=== PATIENT | male | born 1960 | race Caucasian/White ===

== ENCOUNTER 2021-07-02 07:49 | Outpatient (CLI) | payer OTHER, SELFPAY ==
--- NOTE | 2021-07-02 07:51 | CT_ITS ---
STUDY: CT ABDOMEN AND PELVIS WITH CONTRAST REASON FOR EXAM: Male, 60 years old. Abdominal pain. History of prior umbilical hernia repair. RADIATION DOSAGE (If Supplied By Facility): CTDIvol = ( 15.175 ) mGy, DLP = ( 1041.23 ) mGycm TECHNIQUE: Transaxial images were obtained from the dome of the diaphragm to the symphysis pubis with oral contrast. Oral and amp;amp; IV Readi-CAT and amp;amp; 100mL Isovue-300 was administered. Sagittal and coronal images were reconstructed. Individualized dose optimization techniques were used for this CT. COMPARISON: None. FINDINGS: The visualized lung bases are unremarkable. The visualized portions of the heart are within normal limits. Normal liver. Normal gallbladder and extrahepatic biliary system. Normal spleen. Normal pancreas. Normal bilateral adrenal glands. Normal right kidney. Left parapelvic renal cysts. Normal visualized stomach. Normal small intestine. There are multiple colonic diverticula consistent with diverticulosis. The appendix is visualized and appears normal. There is diffuse atherosclerotic calcification of the abdominal aorta and its major visceral branches, without a demonstrated aneurysm. Normal inferior vena cava. There is borderline retroperitoneal lymphadenopathy with enlarged nodes no greater than 10mm in the short axis diameter. Normal urinary bladder. There is enlargement of the prostate gland. It measures 4.8 cm x 5.5 cm. Normal abdominal wall. There are mild degenerative changes of the visualized lumbar spine. CT/Abdomen/Pelvis WITH Contrast IMPRESSION: Scattered sigmoid diverticula. Prostatic enlargement. Left parapelvic renal cysts. Electronically Signed: Sergey Mary MD at 9:08 EST , Service support ,
== END 2021-07-02 23:59 | disposition short-term general hospital (02) ==
PROVIDERS: PCP Family Medicine; Referring Provider Surgery; Visit Provider Surgery
DX: R10.9 Unspecified abdominal pain (principal)
CPT/HCPCS: 74177; Q9967

== ENCOUNTER 2021-08-05 05:59 | Day surgery (SDC) | payer OTHER, SELFPAY ==
--- NOTE | 2021-08-04 13:13 | EKG12_ITS ---
Test Reason : PREOP Blood Pressure : / mmHG Vent. Rate : 051 BPM Atrial Rate : 051 BPM P-R Int : 178 ms QRS Dur : 098 ms QT Int : 426 ms P-R-T Axes : 028 039 047 degrees QTc Int : 392 ms Sinus bradycardia Otherwise normal ECG Confirmed by FAUSTO PEREA, MERRY ([id number]), news copy editor IGNACIO EMERSON ([id number]) on 08/05/2021 8:26:20 AM Referred By: Mateusz Quiroga Confirmed By:MERRY LAMBERT MD
[2021-08-04 14:53] LABS: Hematocrit 45.9 % (40-54); Hemoglobin 15.3 g/dL (13.0-16.5); Mean Corp Hgb Conc 33.3 g/dL (32-36); Mean Corpuscular Hgb 30.9 pg (27.0-32.0); Mean Corpuscular Volume 92.7 fL (80-94); Mean Platelet Vol. 11.3 fl (6.2-12.0); Platelet Count 229 K/mm3 (150-450); RBC Distribution Width CV 13.1 % (11.6-14.6); RBC Distribution Width SD 44.4 fl (35.1-43.9); Red Blood Count 4.95 M/mm3 (4.6-6.2); White Blood Count 5.1 K/mm3 (4.4-11.0)
[2021-08-04 15:41] LABS: Anion Gap 3 (5-15); BUN 11 mg/dL (7-18); BUN/Creat Ratio 12.7 RATIO (10-20); Calcium,Total 8.9 mg/dL (8.5-10.1); Chloride 104 mmol/L (98-107); Creatinine, Serum 0.87 mg/dL (0.70-1.30); EST Glomerular Filtration Rate 96 mL/min (>60); Est Glom Filt Rate - Afr Amer 116 mL/min (>60); Glucose 84 mg/dL (74-106); Potassium 3.7 mmol/L (3.5-5.1); Sodium Level 138 mmol/L (136-145)
[2021-08-05] VITALS (8 sets, daily range): BP systolic 120–133; BP diastolic 69–84; PULSE 52–78; RESP 14–18; TEMP 36.7–37.3; O2SAT 94–100; BMI 24.5
--- NOTE | 2021-08-05 06:36 | HP.PCM_ITS ---
History and Physical Date of Admission: 08/05/21 Intake Intake Visit Reasons: INGUINAL HERNIA/ REFERRED BY DR. 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 Is patient in pain?: No Allergies No Known Allergies Allergy (Verified 07/23/21 09:16) Medications esomeprazole magnesium 20 mg capsule,delayed release 20 mg PO DAILY 03/22/21 [History Confirmed 07/23/21] multivitamin 1 tab PO DAILY 07/23/21 [History Confirmed 07/23/21] PFSH Medical History GERD (gastroesophageal reflux disease) IBS (irritable bowel syndrome) Surgical History History of colonoscopy History of esophagogastroduodenoscopy (EGD) Family History Father Hypertension Cancer skin Mother Cancer ovarian Social History Smoking Status: Never smoker alcohol intake: current details: social substance use type: does not use HPI HPI HPI: MERRY CUI, is a 60 M who presents to the office today for bilateral inguinal hernia. The patient was seen recently and was found to have bilateral inguinal hernia on CT scan. He reports the right causing more discomfort than the left. Patient reports that he has been there for about a year. ROS General General: Yes fatigue; No weight change, appetite, colon cancer, breast cancer or weakness HEENT HEENT: No difficulty swallowing, eye injury, eye surgery, swollen glands or hoarseness Endo Endocrine: No thyroid disease, diabetes mellitus, thyroid cancer, Hair loss, heat intolerance or cold intolerance Skin Skin: No rash or changing moles Musc Musculoskeletal: No back problems, arthritis, rheumatoid arthritis, gout or joint pain Cardio Cardiovascular: No murmur, pacemaker, heart disease, atrial fibrillation, high blood pressure, heart attack, heart stent, palpitations, shortness of breat with exertion or chest pain Psych Psychiatric: No depression, anxiety or hearing voices Resp Respiratory: No shortness of breath, No sleep apnea, No cough, No COPD, No asthma, No emphysema and No wheezing Gastro Gastrointestinal: No abdominal pain, No nausea or vomiting, No diarrhea, No constipation, No blood in stool, Yes acid reflux, No hemorrhoids, No ulcers, No gallbladder problem and No black,tarry stools John Hematologic: No blood thinners, No blood disorders, No bleeding, No anemia and No blood clots Neuro Neurologic: No system reviewed and no additional complaints, except as documented, No as per HPI, No abnormal gait, No abnormal hearing, No abnormal movements, No abnormal speech, No behavioral changes, No burning sensations, No confusion, No convulsions, No disequilibrium, No dizziness, No localized weakness, No frequent falls, No headache(s), No lack of coordination, No loss of vision, No memory loss, No numbness, No other visual disturbances, No radicular pain, No restless legs, No sensory deficit, No syncope, No tingling, No tremor(s), No weakness and No other Exam Const General: cooperative Orientation: alert and oriented x3 HENMT Head: normal to inspection Neck Neck: normal visual inspection and full ROM Chest Chest palpation & inspection: normal inspection of the chest Resp Effort & Inspection: normal respiratory effort Auscultation: clear to auscultation bilaterally Cardio Rate: regular rate Rhythm: regular rhythm GI Inspection: non-distended Palpation: soft, hernia direct inguinal on the right and nontender Skin General: no rashes or lesions noted Neuro General: patient alert and patient oriented x3 Extrem General: full ROM Psych Appearance: grossly normal Mental Status: mental status grossly normal Assessment and Plan Assessment and Plan (1) Bilateral inguinal hernia without obstruction or gangrene: Status: Acute Qualifiers: Recurrence: non-recurrent Qualified Code(s): K40.20 - Bilateral inguinal hernia, without obstruction or gangrene, not specified as recurrent Plan - Dr. Mateusz Quiroga MD: The patient has bilateral inguinal hernia on CT scan. Right is larger than the left. I discussed robotic assisted laparoscopic bilateral inguinal hernia repair with mesh with the patient. I discussed the risks of the procedure including but not limited to bleeding, infection, injury to underlying bowel, chronic groin pain, recurrence of hernia. Patient stands all the risks and is when to proceed. Mateusz Quiroga MD Pager: [facility] [address] [place] [address], [address] [place] [address] Office: I have seen and reexamined the patient and there are no changes.
[2021-08-05] MEDS: Lactated Ringers 1,000 ML 15 ML IV ×2 (06:52→08:25)
[2021-08-05] MEDS: Cefazolin 2 GM in 0.9% Normal Saline 100 ML IV (07:30)
[2021-08-05] MEDS: Bupivacaine Mpf 0.5% 30 ML VIAL (08:20)
--- NOTE | 2021-08-05 08:25 | OP.PCM_ITS ---
Problems Associated Problem List Diagnoses (1) Right inguinal hernia: Report of Operation Date of Procedure: 08/05/21 Pre-Operative Diagnosis: Right inguinal hernia Post-Operative Diagnosis: Right inguinal hernia Surgery/Procedure Performed:: Robotic assisted laparoscopic right inguinal hernia repair with mesh Description of Procedure: Patient was brought back to the operating room and general anesthesia was induced. The abdomen was prepped and draped in the usual sterile fashion. A midline incision was made superior to the umbilicus and the fascia was elevated and Veress needle was placed into the abdomen and a drop test was performed and was normal. The Veress needle was then used to insufflate the abdomen to 15 mmHg and then the Veress needle was removed and a port was placed into the abdomen. Camera was placed into the abdomen and it was inspected and there were no signs of injury. The patient was placed in Trendelenburg position and both inguinal regions were inspected. Patient had direct right inguinal hernia and no hernia on the left side. CT scan did warehouse order picker a small hernia on the left which must have been a lipoma of the cord as there was no defect or dimpling in the left groin. Decision was made to repair the right inguinal hernia. Next under direct visualization a right lateral 8 mm port was placed as well as a left lateral 8 mm port. The robot was then docked. Using electrocautery scissors an incision was made in the right inguinal region and dissection was carried inferiorly until the hernia sac was reduced. Dissection continued inferiorly until there was a large area for the mesh. Next a ProGrip mesh was unfolded over the hernia defect. The peritoneum was then reapproximated using a running 3 OV lock suture completely covering the mesh. The robot was then undocked and the air was allowed to desufflate from the abdomen. The ports were removed and the incisions were injected with anesthetic and closed with interrupted 4-0 Monocryl suture and Steri-Strips and bandages. Scrotum was checked at the end the case and contain both testicles. Patient was awoken and taken to PACU in stable condition. Patient tolerated the procedure well. Grafts/Implants Used: ProGrip mesh in the right inguinal region Admit VTE Documentation VTE Mechan Device Prophylaxis: SCD's
--- NOTE | 2021-08-05 08:28 | EX.PCM.DISCH ---
Discharge Instructions Procedure Hernia Diet Discharge Diet: Light diet - advance as tolerated Activity Discharge Activity: May Not Drive (for 2-3 days or while taking narcotic pain meds.) and May Shower (with the bandage in place 1-2 days after surgery.) Lifting Restrictions: 20 pounds for 4 weeks. Additional Activity Instructions:: Climbing stairs is fine, walking is encouraged. Sitting in bed may be uncomfortable. Sitting up using your lateral muscles (sitting up sideways) is usually more comfortable. Do not drive, work heavy equipment of sign legal documents for 24 hours. If your hernia repair was an ingunial repair, you may have scrotal swelling, an ice pack and/or athletic support can provide more comfort. Pain medications may cause nausea, you should typically eat light foods as you take your pain medications. Pain medications may also cause constipation. If you have difficulty with this, discuss with your doctor. Dressing / Incision Call your doctor if your incision/area has: Continuous Slow Oozing, Sudden Increased Bleeding, Increased Pain/ Swelling, Increased Redness and Foul Smelling Discharge Call your doctor if you observe: Fever of 101 or Higher Suture Line Care: Avoid Pulling/Pushing and Avoid Pinching/Bending Remove Dressing in: 2 days (Remove clear bandages in 2 days, remove Steri-Strips in 7 to 10 days.) Cleanse incision/area with: Soap & Water Follow Up Care Please Follow Up With: Mateusz Quiroga MD When: Please call to schedule 2 week follow up appointment. [phone] Test Results: Test results from this visit will be discussed in further detail at your follow-up appointment, if applicable. Discharge Plan Admission Attending Provider: Mateusz Quiroga Primary Care Provider: Bradford Mack Discharge Orders/Prescriptions Prescriptions: New oxycodone-acetaminophen [Percocet] 5-325 mg tablet 1 tab PO Q4H PRN (Reason: pain) 5 Days Qty: 10 RF: 0 No Action esomeprazole magnesium [Nexium] 20 mg capsule,delayed release(DR/EC) 20 mg PO DAILY RF: 0 multivitamin Tablet 1 tab PO DAILY RF: 0 ascorbic acid (vitamin C) [Vitamin C] 500 mg Tablet 500 mg PO DAILY RF: 0 zinc 50 mg Capsule 50 mg PO DAILY RF: 0 cholecalciferol (vitamin D3) [Vitamin D3] 25 mcg (1,000 unit) Tablet 25 mcg PO DAILY RF: 0 Referrals / Follow Up: Bradford Mack MD [Primary Care Provider] - Disposition Disposition (needs filled in before D/C Order can be placed): Home, Self Care
== END 2021-08-05 23:59 | disposition home or self-care (01) ==
LOC: SDC 06:00 → AC 06:00
PROVIDERS: Anesthesiology; PCP Family Medicine; Referring Provider Surgery; Visit Provider Surgery
PROC: (CPT 49650; principal; 2021-08-05 07:10)
DX: K40.20 Bilateral inguinal hernia, without obstruction or gangrene, not specified as recurrent (principal); K21.9 Gastro-esophageal reflux disease without esophagitis; K58.9 Irritable bowel syndrome, unspecified; G25.81 Restless legs syndrome; Z86.79 Personal history of other diseases of the circulatory system
CPT/HCPCS: 49650; S2900; 00830; 36415; 80048; 85027; 93005; J7120; J2405